=== PATIENT | female | born 1955 | race Caucasian/White ===

== ENCOUNTER → 2019-04-24 10:18 | Outpatient (CLI) | payer SELFPAY ==
[2019-04-07 11:03] VITALS: BMI 36.0
--- NOTE | 2019-04-24 10:24 | ECHOCS_ITS ---
Reason For Study: Arrhythmia Procedure This was a 2D Doppler, Color Flow transthoracic echocardiogram. The study was technically difficult. Contrast injection was performed. Exam performed in department. Left Ventricle Normal size and thickness. The estimated ejection fraction is 65 %. Stage 1 diastolic dysfunction. No regional wall motion abnormalities noted. Right Ventricle Normal size and thickness. Normal systolic function. Atria Normal left atrium. Normal right atrium. Normal atrial septum. Mitral Valve The mitral valve is structurally normal. No prolapse or stenosis seen. Tricuspid Valve Normal tricuspid valve. Unable to estimate RV systolic pressure due to insufficient tricuspid regurgitant envelope. Aortic Valve Normal aortic valve. Trisinus/trileaflet aortic valve. Pulmonic Valve Normal pulmonic valve. Great Vessels Normal aortic root. Normal arch. Normal inferior vena cava. Inferior vena cava collapse with sniff. Pericardium/Pleural No pericardial effusion. Medication 22 gauge I.V. with prn adaptor inserted into right arm. Diluted definity 2ml given slow IV push to enhance endocardial definition. MMode/2D Measurements & Calculations LVIDd: 3.6 cm IVSd: 1.0 cm LA dimension: 3.4 cm LVIDs: 2.3 cm LVPWd: 1.1 cm FS: 36.8 % LAV(MOD-bp): 51.3 ml LVAd ap4: 31.1 cm2 SV(MOD-sp4): 70.5 ml LAV(MOD-bp) Indexed: 25.7 ml/m2 EDV(MOD-sp4): 103.2 ml LAV(MOD-sp2): 50.4 ml EDV(sp4-el): 104.8 ml LAV(MOD-sp4): 52.8 ml LVAs ap4: 14.9 cm2 ESV(MOD-sp4): 32.7 ml ESV(sp4-el): 32.6 ml EF(MOD-sp4): 68.3 % EF(sp4-el): 68.9 % SV(sp4-el): 72.2 ml LA A4 area: 18.0 cm2 Time Measurements MV dec time: 0.22 sec Doppler Measurements & Calculations MV E max michele: 58.5 cm/sec Lat Peak E' Michele: 7.4 cm/sec Med Peak E' Michele: 10.2 cm/sec MV A max michele: 97.8 cm/sec E/E' lat: 7.9 E/E' med: 5.7 MV E/A: 0.60 MV V2 max: 105.0 cm/sec MV P1/2t max michele: 71.3 cm/sec Ao V2 max: 129.0 cm/sec MV max P.4 mmHg MV P1/2t: 77.3 msec Ao max P.7 mmHg MV V2 mean: 61.9 cm/sec Ao V2 mean: 82.4 cm/sec MV mean P.7 mmHg MV dec slope: 270.0 cm/sec2 Ao mean P.1 mmHg MV V2 VTI: 20.8 cm MVA(P1/2t): 2.8 cm2 Ao V2 VTI: 22.0 cm LV V1 max: 96.9 cm/sec PA V2 max: 124.2 cm/sec LV V1 max P.8 mmHg LV V1 mean P.0 mmHg LV V1 mean: 66.2 cm/sec LV V1 VTI: 17.0 cm Interpretation Summary The estimated ejection fraction is 65 %. Stage 1 diastolic dysfunction. Unable to estimate RV systolic pressure due to insufficient tricuspid regurgitant envelope. The study was technically difficult. Contrast injection was performed. There is no comparison study available. Ordering Physician: Adan Alvarez Referring Physician: Chidi Dave Performed By: Kashif Bowers RCS
--- NOTE | 2019-04-24 10:24 | STEWCON_ITS ---
Reason For Study: ARRHYTHMIA Stress Results Protocol: Matthew Protocol WITH DEFINITY Maximum Predicted HR: 159 bpm Target HR: 135 bpm % Maximum Predicted HR: 82 % DurationHeart Rate Stage (mm:ss) (bpm) BP Comment BASELINE 86 146/98 STAGE 1 3:00 109 162/90 STAGE 2 3:00 120 170/96 STAGE 3 2:09 131 / SOB RECOVERY 90 130/924 CC DEFINITY FOR TEST Stress Duration: 8:09 mm:ss Maximum Stress HR: 131 bpm Baseline Echocardiogram Findings The estimated ejection fraction is 65 %. Stress Echo Wall motion Data Resting WM Intermediate WM Stress WM Resting Wall Motion Wall Motion Stress No regional wall motion Mid-Anterior : Mildly abnormalities noted. hypokinetic. Mid-Lateral : Mildly hypokinetic. EKG Data Normal intervals are noted. The patient exercised according to the regular Matthew protocol for a total duration of 8:29. The maximum heart rate attained was 133 beats per minute. This was 85% of maximum predicted heart rate. The patient exercised into stage 3 of the Matthew protocol. During stress, there were no ST or T wave changes noted to suggest ischemia. No clinical angina was noted. Interpretation Summary The estimated ejection fraction is 65 %. Mid-Anterior : Mildly hypokinetic Mid-Lateral : Mildly hypokinetic Abnormal, adequate, treadmill echocardiogram. Positive for ischemia by echocardiographic criteria. No anginal symptoms noted. No arrhythmias noted. Appropriate blood pressure response to exercise. Patient appeared to develop mid anterior lateral hypokinesis seen in 2 views. Test terminated due to the attainment of target heart rate and dyspnea. Final LVEF of 65%. Results may be affected by poor echo windows requiring Definity agent. No complications. The study was technically difficult. Contrast injection was performed. Ordering Physician: Adan Alvarez MD Referring Physician: Adan Alvarez Performed By: Kashif Bowers RCS
== END ==
PROVIDERS: Family Provider Family Medicine; PCP Family Medicine; Referring Provider Internal Medicine Cardiovascular Disease; Visit Provider Internal Medicine Cardiovascular Disease
DX: E11.9 Type 2 diabetes mellitus without complications (principal); E78.5 Hyperlipidemia, unspecified; I10 Essential (primary) hypertension; R94.31 Abnormal electrocardiogram [ECG] [EKG]
CPT/HCPCS: 93017; 93306; 93350; Q9957; A4216; C8928; C8929

== ENCOUNTER 2019-05-06 08:39 | Day surgery (SDC) | payer SELFPAY ==
[2019-04-07 11:03] VITALS: BMI 36.0
[2019-04-29 11:39] VITALS: BMI 36.0
--- NOTE | 2019-05-04 09:53 | RAD_ITS ---
STUDY: X-RAY CHEST REASON FOR EXAM: Female, 63 years old. Pre heart catheter TECHNIQUE: Frontal view of the chest COMPARISON: None. FINDINGS: The lungs are clear. There are no pleural effusions. There is no pneumothorax. The heart is normal in size. The visualized osseous structures are within normal limits. RAD/Chest PA and Lateral IMPRESSION: No acute thoracic pathology. Electronically Signed: Anthony Arias, at 17:05 EDT Tel , Service support ,
[2019-05-04 10:59] LABS: Hematocrit 45.7 % (37-47); Hemoglobin 14.6 g/dL (12.0-15.0); Mean Corp Hgb Conc 31.9 g/dL (32-36); Mean Corpuscular Hgb 29.2 pg (27.0-32.0); Mean Corpuscular Volume 91.4 fL (81-99); Mean Platelet Vol. 10.7 fl (6.2-12.0); Platelet Count 255 K/mm3 (150-450); RBC Distribution Width SD 43.3 fl (35.1-43.9); White Blood Count 9.2 K/mm3 (4.4-11.0)
[2019-05-04 11:07] LABS: International Normalized Ratio 1.2; Prothrombin Time (Protime)PT. 14.5 SECONDS (11.7-14.9)
[2019-05-04 11:08] LABS: Partial Thromboplast Time 29.2 Seconds (24.1-36.2)
[2019-05-04 11:33] LABS: AST(SGOT) 22 U/L (15-37); Alanine Aminotransfer ALT/SGPT 31 U/L (13-56); Albumin, Serum 3.8 g/dL (3.2-5.0); Alkaline Phosphatase 117 U/L (45-117); Anion Gap 5 (5-15); BUN 10 mg/dL (7-18); BUN/Creat Ratio 14.5 RATIO (10-20); Bilirubin, Direct 0.12 mg/dL (0.00-0.30); Calcium,Total 9.5 mg/dL (8.5-10.1); Chloride 105 mmol/L (98-107); Cholesterol 142 mg/dL (200); Creatinine, Serum 0.69 mg/dL (0.55-1.02); EST Glomerular Filtration Rate 91 mL/min (>60); Est Glom Filt Rate - Afr Amer 111 mL/min (>60); Globulin 4.5 g/dL (2.2-4.2); Glucose 114 mg/dL (74-106); High Density Lipoprotein 69 mg/dL; Potassium 3.9 mmol/L (3.5-5.1); Protein, Total 8.3 g/dL (6.4-8.2); Sodium Level 140 mmol/L (136-145); Triglycerides 55 mg/dL; Very Low Density Lipoprotein 11 mg/dL (5-40)
[2019-05-04 14:08] VITALS: BMI 36.0
--- NOTE | 2019-05-06 10:02 | CL.D_ITS ---
Patient Name: MADELIN GUERRERO Study Date: 05/06/2019 Performing: Adan Alavrez MD Ht: 64.17 inches 163 cm : 1955 Wt: 200.42 lbs 90.91 kg Age: 63 Gender: female BSA: 1.96 PROCEDURE(S) PERFORMED DC30-KQV/COR/LV CLINICAL PROFILE AND INDICATIONS Indications: Suspected CAD Heart Failure: None Stress/Imaging Date: 04/24/2019Stress Echocardiogram: Positive Low Risk CAD Presentations: No Sxs, no angina. Comorbidities/Risk Factors: Hypertension Dyslipidemia Diabetes Mellitus: Diabetes Therapy: Oral CONCLUSIONS Normal LV size, wall motion,and systolic function LVEF: by LV gram 65 % Elevated Left Ventricular End Diastolic Pressure RECOMMENDATIONS Management as per referring Child Care Aide D/c plavix, increase lisinopril to 20mg po bid, repeat BP check in 2 weeks. Manual sheath removal. DESCRIPTION OF PROCEDURE The patient arrived to the procedure lab. The risks and benefits of the procedure as well as a full d escription of our services here and current unavailability of surgical backup were fully explained to the patient and/or their significant other prior to the catheterization. The Timeout was completed, verifying the correct patient and procedure. The patient's procedural site was prepped and draped in the usual fashion. Local anesthetic was given subcutaneously to right groin region with Lidocaine 2%. Using a modified Seldinger technique, arterial access was obtained via the right femoral artery, a 4 Fr sheath was inserted Left Coronary Artery selective angiography was performed in multiple views us ing a 4 Fr. JL5 catheter. Right Coronary Artery selective angiography was then performed in multiple views using a 4 Fr. 3DRC catheter. Left Ventriculography was performed in BROWN projection using a 4 Fr . Pigtail catheter. LV to AO pullback pressures were then recorded.The arterial sheath was pulled and manual compression applied until hemostasis is achieved. CORONARY ANGIOGRAPHY DOMINANCE: Right Dominant LEFT HEART ASSESSMENT Left Ventricular Ejection Fraction: by LV Gram 65 % Normal LV wall motion Normal Left Ventricular systolic function Elevated Left Ventricular End Diastolic Pressure LVEDP: 17 mmHg LEFT MAIN: Angiographically normal LEFT ANTERIOR DESCENDING ARTERY: MID LAD: Mild luminal irregularities less than 30% DIAGONAL 1: Mid - Mild luminal irregularities less than 30% CIRCUMFLEX ARTERY: Non-obstructive RIGHT CORONARY ARTERY: Non-obstructive COMPLICATIONS No Complications PROCEDURE MEDICATIONS Oxygen: 2 L/min via nasal cannula Nitro 300 mcg IC 05/06/2019 09:47:53 SUMMARY OF HEMODYNAMIC DATA Time AIR REST ECG 09:08:04 AO 164/84 (119) SA 09:40:48 LV 178/-28, 21 09:46:37 LV 178/-29, 17 09:46:43 LVp 178/-30, 15 09:46:52 AOp 167/73 (114) 09:46:57 AO 144/67 (97) 09:47:30 Signed By Adan Alvarez MD On 05/06/2019 10:01:08 Adan Alvarez MD
--- NOTE | 2019-05-06 11:00 | PCM.HP.BLA ---
Problem List (1) Abnormal EKG Status: Acute Comment: ekg dated 08/01/19 states inferior infarct, probably old, done @ Dr. Dave's office. (2) Abnormal stress echo Status: Acute (3) Chest pressure Status: Acute (4) Hyperlipidemia Status: Chronic (5) Hypertension Status: Chronic History and Physical Date of Admission: 05/06/19 [facility] [address] [place] [address] OFFICE VISIT Date of Service: 04/07/19 MR#: [id number] Acct: [id number] Name: MADELIN BUTT Rep #: [id number] : 1955 Provider: Adan Alvarez MD Age/Sex: 63/F [place] [facility] [place] [place] [facility] Status: Signed HPI HPI History of Present Illness Details: Mrs. Butt is a very pleasant 63-year-old female with a history of diabetes, hypertension, hyperlipidemia, who was referred to our office for preventative cardiac health evaluation. It appears that she has been trying to treat her hypertension, diabetes, with [id number] herbal medications. She is a lifelong non-smoker, but does have a positive family history of premature coronary artery disease in her father who had bypass surgery in his 60s and congestive heart failure in her mother in her 70s. In addition the patient is noted new onset exertional substernal chest pressure which she describes as a 3 out of 10 in severity which is dissimilar from her known GERD which she has had for the better part of 25 years. This mainly occurs with her mowing the yard, and is relieved with rest. In addition she appears to have numbness down her left arm when she exerts herself as well. She has no associated shortness of breath, dyspnea on exertion, or lower extremity edema. Patient was taking lisinopril but no longer is taking it as she said her blood pressure was better at that time. In addition her most recent lipids show an LDL of 128 in January 2019. She has never been on statin based medications. She does take baby aspirin for the last week. In our office today her blood pressure is 150/80, pulse is 76 and regular. Her physical exam demonstrates clear lungs bilaterally, regular rate and rhythm, normal S1/S2, no S3 or S4, no murmurs noted. She has no edema. Lipids are pending. EKG dated 08/01/2018 shows normal sinus rhythm with possible old inferior wall myocardial infarction, normal intervals, QT corrected of 409 ms. Intake Vital Signs 04/07/19 Height 5 ft 4 in 04/07/19 Weight: 210 lb 04/07/19 Body Mass Index (BMI) 36.0 04/07/19 Blood Pressure 150/80 H 04/07/19 Blood Pressure Location Lt brachial 04/07/19 Respiratory Rate 20 H 04/07/19 Pulse Rate 76 04/07/19 Pulse Source Auscultation Intake Visit Reasons: NO PROBS, WANT CK'D (ARABELLA) Manpower Development Specialist Required: No Accompanied by: Is patient in pain?: No Allergies No Known Allergies Allergy (Unverified 04/07/19 09:08) Medications lisinopril 20 mg tablet 20 mg PO DAILY PRN 04/07/19 [History Confirmed 04/07/19] omega-3 fatty acids 1,000 mg capsule 1,000 mg PO DAILY 04/07/19 [History Confirmed 04/07/19] omeprazole magnesium 20 mg tablet,delayed release 20 mg PO DAILY PRN 04/07/19 [History Confirmed 04/07/19] protandim PO QDAY 04/07/19 [History] tri-chromium PO TID 04/07/19 [History] PFSH Medical History Hyperlipidemia (Chronic) Diabetes mellitus, type II (Chronic) Hypertension (Chronic) Abnormal EKG (Acute) Encounter for preventive health examination (Acute) GERD (gastroesophageal reflux disease) (Chronic) Surgical History (Updated 04/07/19 @ 11:00 by Yanelis Sheffield) History of (Chronic) Family History (Updated 04/07/19 @ 11:02 by Yanelis Sheffield) Father , age 68 from brain aneurysm rupture H/O aortic valve replacement brain aneurysm rupture Mother , Age 77 after bilateral hip fracture, CHF CHF after hip surgery Social History (Updated 04/07/19 @ 11:48 by Adan Alvarez MD) Smoking Status: Never smoker ROS Const Const: Positive for other (Is here for preventive cardiac care before heading west this winter); negative for fatigue, weakness, body ache, fever(s), headache(s), chills, frequent falls, night sweats, daytime sleepiness, difficulty sleeping, excessive sweating, weight gain, weight loss, increased appetite, poor appetite or anorexia Eyes Eyes: Negative for blind spots, loss of peripheral vision, transient loss of vision, blurry vision, change in vision, double vision, floaters, tunnel vision or other ENT ENT: Negative for headache(s), dizziness, hearing loss, tinnitus, Nosebleed/epistaxis, balance problems, post nasal drip, lip swelling, tongue swelling, bleeding gums, hoarseness, neck pain, dry mouth or other Cardio Chest Pain: No Palpitations: Yes (It goes fast with more strenuous activity) feels like its: fast Edema: None Muscle aches with walking: None Resp Respiratory: Negative for SOB with activity, SOB at rest, SOB orthopnea\SOB lying down, Cough, Coughing up blood/hemoptysis, chest congestion, pain on inspiration, snoring, stridor, wheezing, crackles, paroxysmal nocturnal dyspnea or other GI GI: Negative nausea, vomiting, heartburn, constipation, belching, bloating, cramping, vomiting blood/hematemesis, bright, red blood in stools, black,tarry stools, loose stools, Difficulty Swallowing or other : Negative for hematuria, frequent nighttime urination/ nocturia, erectile dysfunction or abnormal vaginal bleeding Musc Musc: Negative for muscle aches/ myalgia, muscle weakness, joint pain or balance problems Skin Skin: Negative redness, non-healing lesions, rash, unusual bruising, skin ulcer, wounds, jaundice or other Neuro Neuro: Negative for dizziness, lightheadedness, near syncope, syncope, orthostatic symptoms, frequent falls, headache(s), weakness, confusion, memory loss, restless legs, blurry vision, double vision, vertigo, seizures, lack of coordination or other Yonny Hematologic/Lymphatic: Negative for easy bleeding, easy bruising, enlarged lymph nodes or other Endo Endo: Negative for fatigue, cold intolerance, heat intolerance, excessive sweating, flushing, increased thirst/drinking, increased hunger, hair loss, hair growth or other Psych Psych: Negative for anxiety, depression, thoughts of harming anyone, thoughts of harming yourself, visual hallucinations, panic attacks or audible hallucinations Allergy Allergy/Immunology: Negative for throat swelling, Negative for tongue swelling, Negative for hives, Negative for rash, Negative for lip swelling Cardiology Exam Const Appearance: cooperative, healthy appearing and no acute distress Nutritional Appearance: well nourished Orientation: alert, oriented x3 and oriented to person Head Head: normal to inspection, normocephalic and atraumatic Nose: external nose normal Face and Sinus: face symmetric Mouth: oral mucosae normal Eyes General: appearance normal, both eyes and all related structures Eyelids: eyelids normal Conjunctivae: conjunctivae normal Pupils: PERRL and normal by confrontation EOM: EOM intact bilaterally Neck Neck: normal visual inspection and full ROM Carotids: normal carotid upstroke Chest Chest inspection: normal inspection of the chest Auscultation: Bilateral: Clear to Auscultation Cardio Palpation: normal PMI Rate: regular rate Rhythm: regular rhythm Heart sounds: S1 normal and S2 normal GI GI: normal to inspection, no hepatosplenomegaly and bowel sounds present Neuro General: alert, awake, oriented x3, CN's II-XI intact bilaterally and moves all extremities Skin Skin: no rashes or lesions noted Extremities Pulses: Normal: Right Femoral Pulse, Left Femoral Pulse, Right Dorsalis Pedis Pulse, Left Dorsalis Pedis Pulse, Right Posterior Tibial Pulse, Left Posterior Tibial Pulse, Right Radial Pulse, Left Radial Pulse Lower Extremity Edema: None: Bilateral Psych Psychological: normal affect Assessment & Plan 1. Chest pressure R07.89 Plan 1. Chest pressure: The patient has had exertional chest pressure for the better part of a year while mowing her grass or doing activities outside. This is dissimilar to her reflux symptoms which are more of a burning sensation. In addition she has uncontrolled diabetes with hemoglobin A1c of 7.6, and an elevated LDL cholesterol of 128 as of January 2019. In addition she has a positive family history of coronary disease in her father who required CABG in his 60s. Given the patient's age, diabetes, constellation of symptoms, and family history, an abnormal EKG suggesting possible old inferior wall myocardial infarction, I am quite concerned that she may have undiagnosed coronary occlusive disease. I recommended the patient undergo a 2D echo with Doppler as well as a treadmill echocardiogram to evaluate for possible ischemia. If either 1 of these are grossly abnormal, she may require diagnostic coronary angiogram. In addition I recommended that she have a repeat EKG to evaluate any differences between July 2018 and now. The meantime she will continue baby aspirin. 2. Hyperlipidemia E78.5 Plan 2. Hyperlipidemia: I had a long and thorough discussion regarding the relationship between hyperlipidemia, diabetes, and cardiovascular disease and highly recommended the patient be initiated on more aggressive antilipid therapy. I recommended that she start on Zocor 20 mg p.o. nightly, repeat lipid profile in 6 weeks time Orders Orders: Lipid Profile 6 Weeks Liver Profile 6 Weeks Echo Complete Today Stress Test Echo W/Contrast Today 3. Hypertension I10 Plan 3. Hypertension: The patient's PRN use of lisinopril does not appear to be appropriate to control her hypertension. I recommended her daily use of lisinopril 20 mg p.o. daily. 4. Return office in 6 months. This note was generated using a voice recognition system and there may be incorrect words, spelling or punctuation that were not noted when reviewing the office note prior to saving. Orders Orders: Echo Complete Today Stress Test Echo W/Contrast Today Plan Detail Other Orders Orders: 12 Lead EKG performed by [facility] [place] Today R94.31 Lipid Profile 6 Weeks E11.9 Liver Profile 6 Weeks E11.9 Echo Complete Today E11.9, R94.31 Stress Test Echo W/Contrast Today E11.9, R94.31 Other Medications New: lisinopril 20 mg PO DAILY PRN omeprazole magnesium (Prilosec OTC) 20 mg PO DAILY PRN [tri-chromium] PO TID [protandim] PO QDAY omega-3 fatty acids (Fish Oil Concentrate) 1,000 mg PO DAILY Follow Up +6M (Antonio) Coding Level of Care Code Off vis,new,level 4 Diagnoses Chest pressure R07.89 Hyperlipidemia E78.5 Hypertension I10 Coding Level of Care Code Off vis,new,level 4 Diagnoses Chest pressure R07.89 Hyperlipidemia E78.5 Hypertension I10 04/07/19 1149 <Electronically signed by Adan Alvarez MD> Date Adan Alvarez MD Cosigner Signature: Date (if applicable) CC: Chidi Dave MD ~ Interventional cardiology addendum: Patient seen and examined and no interim change. The risks/benefits of the procedure were thoroughly explained the patient including specific attention to lack of on-site surgical back-up. Cardiac catheterization results to follow.
== END 2019-05-06 14:40 | disposition home or self-care (01) ==
LOC: CLSP 08:39
PROVIDERS: Family Provider Family Medicine; PCP Family Medicine; Referring Provider Internal Medicine Cardiovascular Disease; Visit Provider Internal Medicine Cardiovascular Disease
DX: R07.89 Other chest pain (principal); E78.5 Hyperlipidemia, unspecified; I10 Essential (primary) hypertension; E11.65 Type 2 diabetes mellitus with hyperglycemia; K21.9 Gastro-esophageal reflux disease without esophagitis; Z79.82 Long term (current) use of aspirin; Z79.899 Other long term (current) drug therapy
CPT/HCPCS: 36415; 71046; 80048; 80061; 80076; 85027; 85610; 85730; 93458; J7040; C1769; C1894; Q9967